=== PATIENT | female | born 1945 | race Caucasian/White ===

== ENCOUNTER → 2017-10-22 | Outpatient (CLI) | payer OTHER ==
[~2017-10-22] MED LIST: AMLODIPINE BESYL5 MG PO; ESCITALOPRAM OX20 MG PO; FENOFIBRATE48 MG PO; JANUVIA100 MG PO; LANTUS 3 M100 UNITS1 SC; LISINOPRIL10 MG PO; LYRICA150 MG PO; METFORMIN HCL1000 MG PO; OMEPRAZOLE20 MG PO; PRAVASTATIN SOD20 MG PO; TIZANIDINE HCL4 MG PO; TOPAMAX50 MG PO; TOPIRAMATE200 MG PO; TRAMADOL HCL50 MG PO; VITAMIN D2000 UNIT PO
== END | disposition home or self-care (01) ==
LOC: RAD 10:00
DX: E27.8 Other specified disorders of adrenal gland (principal)
CPT/HCPCS: 74176